=== PATIENT | female | born 1980 | race Caucasian/White ===

== ENCOUNTER 2020-09-07 09:38 | Outpatient (CLI) | payer MEDICAID | END 2020-09-07 09:39 | disposition home or self-care (01) | LOC: BICMAMMO 09:38 | PROVIDERS: ATTEND Advanced Practice Midwife | DX: N63.20 Unspecified lump in the left breast, unspecified quadrant (principal) | CPT/HCPCS: 77066; G0279 ==

== ENCOUNTER 2021-09-08 12:42 | Outpatient (CLI) | payer MEDICAID | END 2021-09-08 12:43 | disposition home or self-care (01) | LOC: BICMAMMO 12:42 | PROVIDERS: ATTEND Advanced Practice Midwife | DX: Z12.31 Encounter for screening mammogram for malignant neoplasm of breast (principal); Z80.3 Family history of malignant neoplasm of breast | CPT/HCPCS: 77067 ==

== ENCOUNTER 2022-01-31 18:51 | Emergency (ER) | payer MEDICAID ==
[2022-01-31 19:44] LABS: Bacteria/HPF None Seen HPF (None Seen); Bilirubin Negative (Negative); Blood, Urine 2+ (Negative); Clarity Clear (Clear); Glucose, Urine (Dipstick) Normal (Negative); Ketone, Urine Negative (Negative); Leukocyte Negative Leu/uL (Negative); Nitrite Negative (Negative); Protein, Urine (Dipstick) Negative (Neg-Trace); RBC/HPF 0-3 HPF (0-3); Specific Gravity, Urine 1.004 (1.002-1.036); Squamous Epithelial 0-3 HPF (0-3); WBC/HPF 0-3 HPF (0-3)
[2022-01-31 19:46] LABS: #Eosinphils 0.1 thou/uL (0.0-0.7); #Lymphocytes 1.1 thou/uL (1.20-3.40); #Monocytes 0.7 thou/uL (0.11-0.59); #Neutrophils 9.2 thou/uL (1.40-6.50); %Basophils 0.3 % (0.0-1.0); %Eosinophils 1.1 % (0.0-10.0); %Lymphocytes 10.2 % (21.0-51.0); %Monocytes 6.2 % (0.0-10.0); %Neutrophils 82.2 % (42.0-75.0); Mean Corpuscular HGB CONC 33.5 g/dL (32.0-36.0); Mean Corpuscular Hemoglobin 29.1 pg (27.0-31.0); Mean Corpuscular Volume 86.9 fl (78.0-98.0); Mean Platelet Volume 8.4 fL (7.4-10.4); Platelet Count 234 10x3/uL (130-400); RBC Distribution Width 11.7 % (11.5-14.5); Red Blood Cell (RBC) Count 4.45 mill/uL (4.20-5.40); White Blood Cell (WBC) Count 11.2 10x3/uL (4.8-10.8)
[2022-01-31 20:07] LABS: ALT (SGPT) 26 U/L (8-55); AST (SGOT) 31 U/L (5-34); Albumin 4.3 g/dL (3.5-5.0); Alkaline Phosphatase 128 U/L (40-110); Anion Gap 13 mmol/L (10-20); BUN (Urea Nitrogen) 7 mg/dL (7.0-18.7); Bilirubin, Total 0.9 mg/dL (0.2-1.2); Calc. Creatinine Clearance 0 mL/min (70-130); Calcium 8.9 mg/dL (7.8-10.44); Carbon Dioxide 26 mmol/L (22-29); Chloride 102 mmol/L (98-107); Estimated GFR 109; Globulin 2.7 g/dL (2.4-3.5); Glucose 103 mg/dL (70-105); Potassium 4.4 mmol/L (3.5-5.1); Sodium 137 mmol/L (136-145)
[2022-01-31] MEDS ORDERED: Ketorolac Tromethamine 30 MG/ML VIAL ONE (20:08)
[2022-01-31 20:21] LABS: BHCG - Serum Negative (NEGATIVE); Pregs Control Background? CLEAR/WHITE (CLR/WHITE); Pregs Control Bar Appear? YES (CONTROL BAR)
[2022-01-31] MEDS ORDERED: Morphine 4 MG/ML VIAL ONE (21:13)
== END 2022-02-01 00:05 | disposition short-term general hospital (02) ==
LOC: ERS 18:51
DX: N99.841 Postprocedural hematoma of a genitourinary system organ or structure following other procedure (principal)
CPT/HCPCS: 36415; 74177; 80053; 81003; 81015; 83605; 84703; 85025; 86140; 86850; 86900; 86901; 96374; 96375; J1885; J2270

== ENCOUNTER 2022-06-09 12:44 | Outpatient (CLI) | payer OTHER ==
[2022-06-09] MEDS ORDERED: Iopamidol 370 76% 100 ML VIAL ONE (14:21)
== END 2022-06-09 12:45 | disposition home or self-care (01) ==
LOC: CT 12:44
PROVIDERS: ATTEND Physician Assistant Medical
DX: N73.9 Female pelvic inflammatory disease, unspecified (principal); K66.0 Peritoneal adhesions (postprocedural) (postinfection); R10.31 Right lower quadrant pain; R19.8 Other specified symptoms and signs involving the digestive system and abdomen
CPT/HCPCS: 74177; Q9967

== ENCOUNTER 2024-01-06 13:36 | Emergency (ER) | payer MEDICAID, SELFPAY ==
[~2024-01-06 13:36] MED LIST: Iopamidol-370 76% 500 ML MDV (1 ML CHARGE) ONE
[2024-01-06] MEDS ORDERED: diphenhydrAMINE 50 MG/ML VIAL ONE (14:23)
[2024-01-06] MEDS ORDERED: Metoclopramide HCl 10 MG (2 mL) VIAL ONE (14:23)
[2024-01-06] MEDS ORDERED: Aspirin Chewable 81 MG TAB ONE (15:11)
[2024-01-06] MEDS ORDERED: Ketorolac Tromethamine 30 MG (1 mL) VIAL ONE (15:11)
[2024-01-06 15:16] LABS: #Basophils 0.06 10x3/uL (0.0-0.2); %Basophils 1.1 % (0.0-1.0); %Eosinophils 2.3 % (0.0-10.0); %Lymphocytes 22.7 % (21.0-51.0); %Monocytes 6.3 % (0.0-10.0); %Neutrophils 67.2 % (42.0-75.0); Hematocrit 45.6 % (36.0-47.0); Hemoglobin 15.8 g/dL (12.0-16.0); Mean Corpuscular HGB CONC 34.6 g/dL (32.0-36.0); Mean Corpuscular Hemoglobin 28.1 pg (27.0-31.0); Mean Platelet Volume 10.9 fL (7.4-10.4); Platelet Count 224 10x3/uL (130-400); RBC Distribution Width 12.4 % (11.5-14.5); Red Blood Cell (RBC) Count 5.63 mill/uL (4.20-5.40)
[2024-01-06 15:31] LABS: ALT (SGPT) 13 U/L (8-55); AST (SGOT) 17 U/L (5-34); Albumin 4.3 g/dL (3.5-5.0); Alkaline Phosphatase 99 U/L (40-110); Anion Gap 15 mmol/L (10-20); BUN (Urea Nitrogen) 13 mg/dL (7.0-18.7); Bilirubin, Total 0.7 mg/dL (0.2-1.2); Calc. Creatinine Clearance 0 mL/min (70-130); Calcium 9.6 mg/dL (7.8-10.44); Carbon Dioxide 24 mmol/L (22-29); Chloride 105 mmol/L (98-107); Estimated GFR 95; Glucose 92 mg/dL (70-105); Lipase 25 U/L (8-78); Protein, Total 7.3 g/dL (6.0-8.3); Sodium 140 mmol/L (136-145)
[2024-01-06 15:32] LABS: Bacteria/HPF None Seen HPF (None Seen); Bilirubin Negative (Negative); Blood, Urine Negative (Negative); CAUTI Indications for Culture Pelvic or flank pain; Clarity Clear (Clear); Glucose, Urine (Dipstick) Normal (Negative); Ketone, Urine Negative (Negative); Leukocyte Negative Leu/uL (Negative); Nitrite Negative (Negative); Protein, Urine (Dipstick) Negative (Neg-Trace); RBC/HPF None Seen HPF (0-3); Squamous Epithelial 0-3 HPF (0-3); Urobilinogen Normal mg/dL (Less than 2); WBC/HPF 0-3 HPF (0-3); pH, Urine 6.5 (5.0-9.0)
[2024-01-06 15:34] LABS: Specific Gravity, Urine 1.004 (1.002-1.036)
[2024-01-06 15:35] LABS: Urine Culture Reflex No No
[2024-01-06 16:06] LABS: Troponin I Less than 0.010 ng/mL (< 0.028)
== END 2024-01-06 17:30 | disposition home or self-care (01) ==
LOC: ERS 13:36
DX: R07.9 Chest pain, unspecified (principal); R51.9 Headache, unspecified; F17.290 Nicotine dependence, other tobacco product, uncomplicated
CPT/HCPCS: 36415; 71045; 71275; 80053; 81001; 83690; 84484; 85025; 85379; 93005; 96374; 96375; J1200; J1885; J2765; Q9967

== ENCOUNTER 2024-01-24 10:19 | Outpatient (CLI) | payer OTHER | END 2024-01-24 10:20 | disposition home or self-care (01) | LOC: BICMAMMO 10:19 | DX: Z12.31 Encounter for screening mammogram for malignant neoplasm of breast (principal); M85.89 Other specified disorders of bone density and structure, multiple sites; Z78.0 Asymptomatic menopausal state; Z90.722 Acquired absence of ovaries, bilateral; Z80.3 Family history of malignant neoplasm of breast | CPT/HCPCS: 77063; 77067; 77080 ==